=== PATIENT | male | born 1945 | race Caucasian/White ===

== ENCOUNTER 2017-01-12 07:42 | Day surgery (SDC) | payer OTHER, BC ==
[2017-01-12 08:57] VITALS: BMI 25.1
[2017-01-12 09:58] VITALS: TEMP 97.8
[2017-01-12 11:11] VITALS: BP 125/59; PULSE 71
--- NOTE | 2017-01-13 12:43 | PATH ---
Surgical Pathology Report Patient Name: JUDY ESPINOZA [facility]. Rec. #: [id number] /Age/Gender: 1945 (Age: 71) / M Account: [id number] Location: U-ENDOSCOPY Taken: 01/12/2017 Received: 01/12/2017 Reported: 01/13/2017 Physicians: Reno Sheth M.D. Specimen(s) Received A: BX SIGMOID COLON POLYP x2 B: BX ASCENDING COLON POLYP C: BX RECTAL POLYP Clinical History History of colon polyps Colon polyps, redundant colon, fair colon prep, grade 2 hemorrhoids Final Diagnosis A. COLON, SIGMOID, POLYPS x2, BIOPSY: FRAGMENTS OF HYPERPLASTIC POLYP (x4). B. COLON, ASCENDING, POLYP BIOPSY: TUBULAR ADENOMA. C. THE RECTUM, POLYP, BIOPSY: HYPERPLASTIC POLYP. Electronically Signed Jens Mattson M.D. Gross Description A. Received in formalin, labeled "biopsy sigmoid polyp" are 4 mercado, irregular portions of soft tissue ranging from 0.3-0.5 cm in greatest dimension. The specimens are submitted in toto in one cassette. B. Received in formalin, labeled "biopsy ascending colon polyp" is a mercado, irregular portion of soft tissue measuring 0.2 cm in greatest dimension. The specimen is submitted in toto in one cassette. C. Received in formalin, labeled "biopsy rectal polyp" is a mercado, irregular portion of soft tissue measuring 0.1 cm in greatest dimension. The specimen is submitted in toto in one cassette. /01/12/201701/12/2017
== END 2017-01-12 11:11 | disposition home or self-care (01) ==
LOC: JASU-ENDO 07:42
PROVIDERS: ATTEND Internal Medicine Gastroenterology
PROC: 0DBN8ZX Excision of Sigmoid Colon, Via Natural or Artificial Opening Endoscopic, Diagnostic (ICD-10-PCS; 2017-01-12)
PROC: 0DBP8ZX Excision of Rectum, Via Natural or Artificial Opening Endoscopic, Diagnostic (ICD-10-PCS; 2017-01-12)
PROC: 0DBK8ZX Excision of Ascending Colon, Via Natural or Artificial Opening Endoscopic, Diagnostic (ICD-10-PCS; principal; 2017-01-12 09:00)
DX: Z12.11 Encounter for screening for malignant neoplasm of colon (principal); Z86.010 Personal history of colon polyps; D12.2 Benign neoplasm of ascending colon; D12.5 Benign neoplasm of sigmoid colon; K62.1 Rectal polyp; K64.8 Other hemorrhoids
CPT/HCPCS: 88305-TC

== ENCOUNTER 2017-07-06 09:35 | Day surgery (SDC) | payer OTHER, BC ==
[2017-07-06 10:14] VITALS: BMI 25.1
[2017-07-06] MEDS ORDERED: PROPOFOL 20 ML ONE ×2 (10:29)
[2017-07-06 11:27] VITALS: TEMP 97.7
[2017-07-06 12:15] VITALS: PULSE 70
[2017-07-06 15:19] VITALS: BP 136/75
--- NOTE | 2017-07-07 11:38 | PATH ---
Surgical Pathology Report Patient Name: JUDY ESPINOZA [facility]. Rec. #: [id number] /Age/Gender: 1945 (Age: 71) / M Account: [id number] Location: U-ENDOSCOPY Taken: 07/06/2017 Received: 07/06/2017 Reported: 07/07/2017 Physicians: Reno Sheth M.D. Specimen(s) Received A: POLYP FROM ASCENDING COLON B: BIOPSY POLYP FROM RECTO-SIGMOID COLON Clinical History Preoperative diagnosis: Diverticulosis Postoperative diagnosis: Colon polyp, redundant colon, diverticulosis, third-degree hemorrhoids Final Diagnosis A. COLON, ASCENDING, BIOPSY: HYPERPLASTIC POLYP. B. COLON, RECTOSIGMOID, BIOPSY: HYPERPLASTIC POLYP. Electronically Signed Giovanny Quiroga M.D. Gross Description A. Received in formalin, labeled "polyp ascending colon" is a mercado, irregular portion of soft tissue measuring 0.2 cm. in greatest dimension. The specimen is submitted in toto in one cassette. B. Received in formalin, labeled "biopsy polyp rectosigmoid" are 3 mercado, irregular portions of soft tissue ranging from 0.2-0.3 cm. in greatest dimension. The specimens are submitted in toto in one cassette. 07/06/201707/06/2017
== END 2017-07-06 12:30 | disposition home or self-care (01) ==
LOC: JASU-ENDO 09:35
PROVIDERS: ATTEND Internal Medicine Gastroenterology
PROC: 0DBN8ZX Excision of Sigmoid Colon, Via Natural or Artificial Opening Endoscopic, Diagnostic (ICD-10-PCS; 2017-07-06)
PROC: 0DBK8ZX Excision of Ascending Colon, Via Natural or Artificial Opening Endoscopic, Diagnostic (ICD-10-PCS; principal; 2017-07-06 10:00)
DX: Z12.11 Encounter for screening for malignant neoplasm of colon (principal); Z86.010 Personal history of colon polyps; K57.30 Diverticulosis of large intestine without perforation or abscess without bleeding; K64.8 Other hemorrhoids; K63.89 Other specified diseases of intestine; D12.2 Benign neoplasm of ascending colon; D12.7 Benign neoplasm of rectosigmoid junction
CPT/HCPCS: 88305-TC

== ENCOUNTER 2024-02-10 17:20 | Inpatient (IN) | payer OTHER, BC ==
[2024-02-10] MEDS: SODIUM CHLORIDE 0.9% 1000 ML INFUS.BAG IV STA (18:01)
[2024-02-10] MEDS ORDERED: ACETAMINOPHEN INJECTION 100 ML IVPB ONE (18:03)
[2024-02-10] MEDS: ACETAMINOPHEN 1000 MG/100 ML BAG IVPB ONE (18:04)
[2024-02-10 18:08] LABS: BASO % 0.2 % (0-2.0); HEMATOCRIT 44.9 % (35.4-49); HEMOGLOBIN 14.5 GM/dL (11.7-16.9); LYMPH % 10.5 % (8-40); MCHC 32.4 g/dl (32.0-35.9); MEAN PLT VOLUME 10.6 fl (7.5-11.1); MONO % 15.6 % (3.8-10.2); NEUT % 73.7 % (42.8-82.8); PLATELET COUNT 201 10^3/uL (134-434); RBC 4.27 M/mm3 (4.00-5.60); RDW 15.1 % (11.9-15.9); VENOUS BASE EXCESS -7.9 mmol/L (-2-2); VENOUS O2 SATURATION 42.3 % (70-80); VENOUS PCO2 38.5 mmHg (38-52); VENOUS PH 7.289 (7.310-7.410); WHITE BLOOD COUNT 13.5 K/mm3 (4.0-10.0)
[2024-02-10] MEDS: PIPERACILLIN/TAZOBACTAM 4.5 GM VIAL IVPB ONE (18:13)
[2024-02-10 18:14] LABS: INR 1.42 (0.83-1.09); PROTHROMBIN TIME (PATIENT) 16.2 SEC (9.7-13.0)
[2024-02-10] MEDS ORDERED: PIPERACILLIN/TAZOB 4.5 GM 4.5 GM/100 ML BAG IVPB ONE (18:14)
[2024-02-10 18:16] LABS: ACTIVATED PTT 48.1 SECONDS (25.2-36.5)
[2024-02-10] MEDS ORDERED: VANCOMYCIN 1 GRAM (PRE-DOCKED) 1,000 MG/250 ML BAG IVPB ONE (18:24)
[2024-02-10] MEDS: VANCOMYCIN 1,500 MG in DEXTROSE 5%-WATER - 500 ML IVPB ONE (18:26)
[2024-02-10 18:31] LABS: ANISOCYTOSIS 1+; MACROCYTOSIS 1+
[2024-02-10 18:37] LABS: CHLORIDE 128 mmol/L (98-107); POTASSIUM 5.6 mmol/L (3.5-5.1)
[2024-02-10 18:39] LABS: CALCIUM 9.7 mg/dL (8.5-10.1)
[2024-02-10 18:40] LABS: CO2 21 mmol/L (21-32); GLUCOSE,RANDOM 154 mg/dL (74-106)
[2024-02-10 18:43] LABS: CREATININE 3.5 mg/dL (0.55-1.3); SGOT/AST 161 U/L (15-37); SGPT/ALT 113 U/L (13-61)
[2024-02-10 18:45] LABS: BILIRUBIN,TOTAL 3.8 mg/dL (0.2-1); TOT PROT 7.7 g/dl (6.4-8.2)
[2024-02-10 18:46] LABS: ALK PHOS 100 U/L (45-117)
[2024-02-10 18:55] LABS: ANION GAP 14 mmol/L (4-13); BLOOD UREA NITROGEN 140.4 mg/dL (7-18); LACTIC ACID 6.8 mmol/L (0.4-2.0); SODIUM 163 mmol/L (136-145)
[2024-02-10] MEDS ORDERED: dilTIAZem HCL 125 MG/25 ML - 25 ML VIAL ONE (19:08)
[2024-02-10] MEDS: SODIUM CHLORIDE 0.45% 1,000 ML IV SCH ×2 (19:18→22:45)
[2024-02-10] MEDS: dilTIAZem HCL 50 MG/10 ML - 10 ML VIAL IVPUSH ONE (19:18)
[2024-02-10] MEDS ORDERED: DEXTROSE 50%-WATER 25 GM/50 ML DISP.SYRIN ONE (19:23)
[2024-02-10] MEDS ORDERED: INSULIN REGULAR HUMAN 100 UNITS/ML *VIAL ONE (19:23)
[2024-02-10] MEDS: DEXTROSE 50%-WATER - 25 GM/50 ML VIAL IVPUSH ONE (19:36)
[2024-02-10] MEDS: INSULIN REGULAR HUMAN 100 UNITS/ML *VIAL IVPUSH ONE (19:36)
[2024-02-10] MEDS ORDERED: NOREPINEPHRINE BITARTRATE 4 MG/4 ML ML IV ONE (21:47)
[2024-02-10 21:55] LABS: CHLORIDE 131 mmol/L (98-107); POTASSIUM 4.2 mmol/L (3.5-5.1)
[2024-02-10 21:56] LABS: CALCIUM 8.6 mg/dL (8.5-10.1)
[2024-02-10] MEDS: NOREPINEPHRINE BITARTRATE 4,000 MCG in DEXTROSE 5%-WATER - 496 ML IV SCH (21:56)
[2024-02-10 21:57] LABS: ALBUMIN 2.7 g/dl (3.4-5.0); CO2 23 mmol/L (21-32); GLUCOSE,RANDOM 111 mg/dL (74-106)
[2024-02-10 22:00] LABS: CREATININE 3.4 mg/dL (0.55-1.3); SGOT/AST 175 U/L (15-37); SGPT/ALT 106 U/L (13-61)
[2024-02-10 22:01] LABS: TOT PROT 6.7 g/dl (6.4-8.2)
[2024-02-10 22:02] LABS: BILIRUBIN,TOTAL 4.3 mg/dL (0.2-1)
[2024-02-10 22:03] LABS: ALK PHOS 85 U/L (45-117); ANION GAP 8 mmol/L (4-13); BLOOD UREA NITROGEN 134.7 mg/dL (7-18); SODIUM 162 mmol/L (136-145)
[2024-02-10 22:09] LABS: LACTIC ACID 4.2 mmol/L (0.4-2.0)
[2024-02-11] MEDS ORDERED: PNEUMOC 20-VAL CONJ-DIP CRM/PF 0.5 ML SYRINGE IM ONE (00:11)
[2024-02-11] MEDS ORDERED: HYDROmorphone HCl 2 MG/ML VIAL IVPUSH PRN (00:26)
[2024-02-11] MEDS: HEPARIN NA (PORCINE) 5,000 UNITS/ML 1ML VIAL SQ SCH (00:46)
[2024-02-11 01:48] LABS: ARTERIAL BLD GAS O2 SATURATION 97.1 % (95-98); ARTERIAL BLOOD GAS BASE EXCESS -3.1 mmol/L (-2-2); ARTERIAL BLOOD GAS PO2 87.7 mmHg (80-100)
[2024-02-11 01:52] LABS: ALLENS TEST POSITIVE
[2024-02-11] MEDS ORDERED: PIPERACILLIN/TAZOB 2.25 GM 2.25 GM in DEXTROSE 5%-WATER - 50 ML IVPB SCH (02:00)
[2024-02-11] MEDS: PANTOPRAZOLE SODIUM 40 MG VIAL IVPUSH SCH (02:17)
[2024-02-11 02:27] LABS: CHLORIDE 130 mmol/L (98-107); POTASSIUM 4.5 mmol/L (3.5-5.1)
[2024-02-11 02:30] LABS: ALBUMIN 2.7 g/dl (3.4-5.0); CALCIUM 8.8 mg/dL (8.5-10.1); CO2 25 mmol/L (21-32); GLUCOSE,RANDOM 139 mg/dL (74-106); MAGNESIUM 2.8 mg/dL (1.8-2.4)
[2024-02-11 02:33] LABS: CREATININE 3.2 mg/dL (0.55-1.3); PHOSPHOROUS 3.8 mg/dL (2.5-4.9); SGOT/AST 180 U/L (15-37); SGPT/ALT 109 U/L (13-61)
[2024-02-11 02:35] LABS: BILIRUBIN,TOTAL 4.4 mg/dL (0.2-1); TOT PROT 6.7 g/dl (6.4-8.2)
[2024-02-11 02:36] LABS: ALK PHOS 89 U/L (45-117)
[2024-02-11 02:47] LABS: ANION GAP 7 mmol/L (4-13); BLOOD UREA NITROGEN 133.5 mg/dL (7-18); SODIUM 162 mmol/L (136-145); URIC ACID 14.7 mg/dL (2.6-7.2)
[2024-02-11] MEDS: PIPERACILLIN/TAZOB 2.25 GM 2.25 GM in DEXTROSE 5%-WATER - 50 ML IVPB SCH (06:15)
[2024-02-11] MEDS: methylPREDNISolone NA SUCC 40 MG/1 ML VIAL IVPUSH SCH (06:15)
[2024-02-11] MEDS: AZITHROMYCIN 1% OPHTH SOLN 1 BOTTLE OD SCH (06:18)
[2024-02-11] MEDS: MUPIROCIN 2% TOPICAL OINTMENT FOR DECOLONIZATION NS SCH (06:19)
[2024-02-11 07:20] LABS: BASO % 0.1 % (0-2.0); HEMATOCRIT 34.5 % (35.4-49); HEMOGLOBIN 11.5 GM/dL (11.7-16.9); MCH 34.1 pg (25.7-33.7); MCHC 33.4 g/dl (32.0-35.9); MEAN CELL VOLUME 102.3 fl (80-96); MEAN PLT VOLUME 10.4 fl (7.5-11.1); MONO % 15.3 % (3.8-10.2); NEUT % 78.6 % (42.8-82.8); RBC 3.37 M/mm3 (4.00-5.60); RDW 14.5 % (11.9-15.9)
[2024-02-11 07:28] LABS: INR 1.62 (0.83-1.09); PROTHROMBIN TIME (PATIENT) 18.4 SEC (9.7-13.0)
[2024-02-11 07:31] LABS: ACTIVATED PTT 59.2 SECONDS (25.2-36.5)
[2024-02-11 07:35] LABS: MAGNESIUM 2.6 mg/dL (1.8-2.4)
[2024-02-11 07:36] LABS: AMYLASE 192 U/L (25-115)
[2024-02-11 09:56] LABS: PLATELET COUNT 124 10^3/uL (134-434)
[2024-02-11] MEDS: HYDROmorphone HCL CARPU-JECT 2 MG/1 ML DISP.SYRIN IVPUSH PRN (14:42)
[2024-02-11 15:10] LABS: BASO % 0.1 % (0-2.0); HEMATOCRIT 37.2 % (35.4-49); HEMOGLOBIN 11.9 GM/dL (11.7-16.9); LYMPH % 4.4 % (8-40); MCH 33.7 pg (25.7-33.7); MEAN PLT VOLUME 10.5 fl (7.5-11.1); MONO % 5.2 % (3.8-10.2); NEUT % 90.3 % (42.8-82.8); PLATELET COUNT 128 10^3/uL (134-434); RBC 3.54 M/mm3 (4.00-5.60); RDW 13.8 % (11.9-15.9)
[2024-02-11 15:17] LABS: INR 1.71 (0.83-1.09)
[2024-02-11 15:28] LABS: CHLORIDE 134 mmol/L (98-107)
[2024-02-11 15:30] LABS: CALCIUM 8.7 mg/dL (8.5-10.1); CHLORIDE 133 mmol/L (98-107); POTASSIUM 5.1 mmol/L (3.5-5.1)
[2024-02-11 15:31] LABS: ALBUMIN 2.3 g/dl (3.4-5.0); CO2 24 mmol/L (21-32); GLUCOSE,RANDOM 145 mg/dL (74-106)
[2024-02-11 15:32] LABS: ALBUMIN 2.4 g/dl (3.4-5.0); CALCIUM 8.8 mg/dL (8.5-10.1); CO2 24 mmol/L (21-32)
[2024-02-11 15:33] LABS: GLUCOSE,RANDOM 145 mg/dL (74-106)
[2024-02-11 15:34] LABS: CREATININE 2.5 mg/dL (0.55-1.3); SGOT/AST 102 U/L (15-37); SGPT/ALT 87 U/L (13-61)
[2024-02-11 15:36] LABS: BILIRUBIN,TOTAL 2.5 mg/dL (0.2-1); SGOT/AST 103 U/L (15-37); SGPT/ALT 82 U/L (13-61)
[2024-02-11 15:37] LABS: ALK PHOS 75 U/L (45-117); BILIRUBIN,TOTAL 2.5 mg/dL (0.2-1); TOT PROT 5.8 g/dl (6.4-8.2)
[2024-02-11 15:38] LABS: ALK PHOS 74 U/L (45-117)
[2024-02-11 15:40] LABS: ANION GAP 4 mmol/L (4-13); BLOOD UREA NITROGEN 118.3 mg/dL (7-18); CREATININE 2.6 mg/dL (0.55-1.3); SODIUM 161 mmol/L (136-145)
[2024-02-11 15:56] LABS: ANION GAP 5 mmol/L (4-13); BLOOD UREA NITROGEN 117.6 mg/dL (7-18); SODIUM 163 mmol/L (136-145)
[2024-02-11] MEDS: DEXTROSE 5%-WATER - 1,000 ML IV SCH ×2 (16:12→22:44)
[2024-02-11] MEDS: CEFTRIAXONE 1 GM in DEXTROSE 5%-WATER - 50 ML IVPB SCH (16:34)
[2024-02-11] MEDS: dilTIAZem HCL 50 MG/10 ML - 10 ML VIAL IVPUSH PRN (16:50)
[2024-02-11] MEDS: VANCOMYCIN/WATER 1250 MG 1,250 MG/250 ML BAG IVPB ONE (17:41)
[2024-02-11] MEDS: SENNOSIDES 8.8 MG/5 ML SYRUP PO SCH (21:38)
[2024-02-11] MEDS: CHLORHEXIDINE GLUCONATE 4% CLEANSER FOR DECOLONIZATION TP SCH (21:38)
[2024-02-11 21:47] LABS: CHLORIDE 134 mmol/L (98-107); POTASSIUM 4.4 mmol/L (3.5-5.1)
[2024-02-11 21:49] LABS: CALCIUM 8.4 mg/dL (8.5-10.1); CO2 23 mmol/L (21-32); GLUCOSE,RANDOM 192 mg/dL (74-106)
[2024-02-11 21:52] LABS: CREATININE 2.3 mg/dL (0.55-1.3)
[2024-02-11 21:58] LABS: ANION GAP 5 mmol/L (4-13); BLOOD UREA NITROGEN 108.8 mg/dL (7-18); SODIUM 162 mmol/L (136-145)
[2024-02-12 06:49] LABS: BASO % 0.1 % (0-2.0); HEMATOCRIT 37.8 % (35.4-49); LYMPH % 3.5 % (8-40); MCHC 31.6 g/dl (32.0-35.9); MEAN CELL VOLUME 104.3 fl (80-96); MEAN PLT VOLUME 10.8 fl (7.5-11.1); MONO % 6.5 % (3.8-10.2); NEUT % 89.9 % (42.8-82.8); PLATELET COUNT 161 10^3/uL (134-434); RBC 3.63 M/mm3 (4.00-5.60); RDW 13.8 % (11.9-15.9); WHITE BLOOD COUNT 11.9 K/mm3 (4.0-10.0)
[2024-02-12 07:00] LABS: CHLORIDE 132 mmol/L (98-107); POTASSIUM 4.1 mmol/L (3.5-5.1)
[2024-02-12 07:02] LABS: INR 1.6 (0.83-1.09); PROTHROMBIN TIME (PATIENT) 17.8 SEC (9.7-13.0)
[2024-02-12 07:04] LABS: CALCIUM 9.2 mg/dL (8.5-10.1)
[2024-02-12 07:05] LABS: ALBUMIN 2.4 g/dl (3.4-5.0); CO2 23 mmol/L (21-32); GLUCOSE,RANDOM 166 mg/dL (74-106)
[2024-02-12 07:08] LABS: CREATININE 2.2 mg/dL (0.55-1.3); SGOT/AST 68 U/L (15-37); SGPT/ALT 77 U/L (13-61)
[2024-02-12 07:09] LABS: TOT PROT 6.2 g/dl (6.4-8.2)
[2024-02-12 07:10] LABS: BILIRUBIN,TOTAL 1.6 mg/dL (0.2-1)
[2024-02-12 07:11] LABS: ALK PHOS 74 U/L (45-117)
[2024-02-12 07:44] LABS: ANION GAP 5 mmol/L (4-13); BLOOD UREA NITROGEN 104.6 mg/dL (7-18); SODIUM 160 mmol/L (136-145)
[2024-02-12] MEDS: THIAMINE HCL 200 MG/2 ML VIAL IVPB SCH (09:00)
[2024-02-12] MEDS ORDERED: cefTRIAXone SODIUM 1 GM VIAL ONE (09:35)
[2024-02-12] MEDS: MAGNESIUM SULFATE IN WATER 2 GM/50 ML IVPB IVPB ONE (09:49)
[2024-02-12] MEDS ORDERED: CEFTRIAXONE 1 GM in DEXTROSE 5%-WATER - 50 ML IVPB SCH (10:00)
[2024-02-12 11:27] LABS: POTASSIUM 3.9 mmol/L (3.5-5.1)
[2024-02-12 11:30] LABS: CALCIUM 9.1 mg/dL (8.5-10.1)
[2024-02-12 11:31] LABS: BLOOD UREA NITROGEN 100.8 mg/dL (7-18)
[2024-02-12 11:34] LABS: CREATININE 2.3 mg/dL (0.55-1.3)
[2024-02-12] MEDS: DEXTROSE 5%-WATER - 1,000 ML IV SCH ×2 (12:00→23:32)
[2024-02-12] MEDS ORDERED: LORazepam 1 MG TABLET PO PRN (13:29)
[2024-02-12] MEDS: LORazepam 1 MG TABLET PO SCH (13:54)
[2024-02-12 15:44] LABS: POTASSIUM 3.8 mmol/L (3.5-5.1)
[2024-02-12 15:47] LABS: CALCIUM 8.7 mg/dL (8.5-10.1)
[2024-02-12 15:49] LABS: CREATININE 2.1 mg/dL (0.55-1.3)
[2024-02-12] MEDS: INSULIN ASPART SLIDING SCALE (NOVOLOG) 1 VIAL SQ SCH (18:00)
[2024-02-13 06:58] LABS: BASO % 0.3 % (0-2.0); HEMATOCRIT 30.9 % (35.4-49); HEMOGLOBIN 10.3 GM/dL (11.7-16.9); LYMPH % 3.6 % (8-40); MCH 33.7 pg (25.7-33.7); MCHC 33.2 g/dl (32.0-35.9); MEAN CELL VOLUME 101.5 fl (80-96); MEAN PLT VOLUME 11.7 fl (7.5-11.1); MONO % 6.6 % (3.8-10.2); NEUT % 89.5 % (42.8-82.8); PLATELET COUNT 130 10^3/uL (134-434); RBC 3.04 M/mm3 (4.00-5.60); RDW 13.4 % (11.9-15.9); WHITE BLOOD COUNT 10.6 K/mm3 (4.0-10.0)
[2024-02-13 07:21] LABS: ALBUMIN 2.1 g/dl (3.4-5.0); BLOOD UREA NITROGEN 87.3 mg/dL (7-18); CALCIUM 8.7 mg/dL (8.5-10.1)
[2024-02-13 07:24] LABS: CREATININE 1.6 mg/dL (0.55-1.3)
[2024-02-13 07:25] LABS: TOT PROT 5.2 g/dl (6.4-8.2)
[2024-02-13] MEDS: MULTIVITAMINS (DAILY MVI) TABLET (FP) PO SCH (09:19)
[2024-02-13] MEDS: FOLIC ACID 1 MG TABLET (FP) PO SCH (09:19)
[2024-02-13] MEDS ORDERED: DEXTROSE 5%-WATER - 1,000 ML IV SCH (17:55)
[2024-02-13] MEDS ORDERED: dilTIAZem HCL 50 MG/10 ML - 10 ML VIAL IVPUSH PRN (17:55)
[2024-02-13] MEDS: HEPARIN NA (PORCINE) 5,000 UNITS/ML 1ML VIAL SQ SCH (22:09)
[2024-02-13] MEDS: CHLORHEXIDINE GLUCONATE 4% CLEANSER FOR DECOLONIZATION TP SCH (22:09)
[2024-02-13] MEDS: SENNOSIDES 8.6MG TABLET (FP) PO SCH (22:09)
[2024-02-13] MEDS: PANTOPRAZOLE SODIUM 40 MG VIAL IVPUSH SCH (22:09)
[2024-02-13] MEDS: MUPIROCIN 2% TOPICAL OINTMENT FOR DECOLONIZATION NS SCH (22:09)
[2024-02-13] MEDS: DEXTROSE 5%-WATER - 1,000 ML IV SCH (22:10)
[2024-02-13] MEDS: AZITHROMYCIN 1% OPHTH SOLN 1 BOTTLE OD SCH (22:19)
[2024-02-14] MEDS: DEXTROSE 5%-WATER - 1,000 ML IV SCH (03:44)
[2024-02-14] MEDS ORDERED: LORazepam 1 MG TABLET PO SCH (05:00)
[2024-02-14] MEDS: LORazepam 1 MG TABLET PO SCH (05:18)
[2024-02-14 07:14] LABS: BASO % 0.1 % (0-2.0); EOS % 0.1 % (0-4.5); HEMATOCRIT 31.3 % (35.4-49); HEMOGLOBIN 10.4 GM/dL (11.7-16.9); LYMPH % 7.6 % (8-40); MCH 33.5 pg (25.7-33.7); MCHC 33.4 g/dl (32.0-35.9); MEAN CELL VOLUME 100.3 fl (80-96); MEAN PLT VOLUME 11.3 fl (7.5-11.1); MONO % 9.3 % (3.8-10.2); NEUT % 82.9 % (42.8-82.8); PLATELET COUNT 120 10^3/uL (134-434); RBC 3.12 M/mm3 (4.00-5.60); RDW 12.9 % (11.9-15.9); WHITE BLOOD COUNT 8.8 K/mm3 (4.0-10.0)
[2024-02-14 07:26] LABS: POTASSIUM 3.6 mmol/L (3.5-5.1)
[2024-02-14 07:30] LABS: CALCIUM 8.2 mg/dL (8.5-10.1); MAGNESIUM 1.6 mg/dL (1.8-2.4)
[2024-02-14 07:33] LABS: CREATININE 1.1 mg/dL (0.55-1.3); PHOSPHOROUS 2.4 mg/dL (2.5-4.9)
[2024-02-14 07:44] LABS: BLOOD UREA NITROGEN 54.7 mg/dL (7-18)
[2024-02-14] MEDS: THIAMINE HCL 200 MG/2 ML VIAL IVPB SCH (09:10)
[2024-02-14] MEDS: FOLIC ACID 1 MG TABLET (FP) PO SCH (09:10)
[2024-02-14] MEDS: MULTIVITAMINS (DAILY MVI) TABLET (FP) PO SCH (09:10)
[2024-02-14] MEDS: CEFTRIAXONE 1 GM in DEXTROSE 5%-WATER - 50 ML IVPB SCH (09:11)
[2024-02-14] MEDS: LORazepam 1 MG TABLET PO PRN (09:12)
[2024-02-14] MEDS: NAPH,MB-DB/K PH,MBDB POWDER PACKET PO SCH (10:42)
[2024-02-14] MEDS: MAGNESIUM SULF 50% (8.12 MEQ/2 ML-1 GM VIAL) IVPB ONE (10:42)
[2024-02-14 10:44] VITALS: BMI 19.1
[2024-02-14] MEDS: POTASSIUM CHLORIDE 10 MEQ in DEXTROSE 5%-WATER - 1,000 ML IV SCH (11:33)
[2024-02-14] MEDS: ZINC SULFATE 220 MG CAPSULE (FP) PO SCH (13:16)
[2024-02-14] MEDS: ASCORBIC ACID 500 MG TABLET (FP) PO SCH (13:17)
[2024-02-14] MEDS: AMINO ACIDS/PROTEIN HYDROLYS 30 ML LIQUID.PKT PO SCH (13:17)
[2024-02-14] MEDS ORDERED: oxyCODONE HCL 5 MG TABLET PO PRN (16:56)
[2024-02-14] MEDS: ACETAMINOPHEN 1000 MG/100 ML BAG IVPB PRN (17:07)
[2024-02-14 20:07] VITALS: BP 130/84; PULSE 96; RESP 23; TEMP 98.2
[2024-02-14] MEDS: NICOTINE 14 MG/24 HOURS TOPICAL PATCH TD SCH (21:58)
[2024-02-15] MEDS ORDERED: LORazepam 0.5 MG TABLET PO PRN
[2024-02-15] MEDS ORDERED: LORazepam 0.5 MG TABLET PO SCH ×2 (05:00)
[2024-02-16] MEDS ORDERED: LORazepam 0.5 MG TABLET PO PRN
[2024-02-16] MEDS ORDERED: LORazepam 0.5 MG TABLET PO ONE ×2 (05:00)
== END 2024-02-14 22:30 | disposition short-term general hospital (02) | DRG 871 ==
LOC: JER 17:20 → JERBED 21:46 → JICU 02-11 00:22 → J2W 02-13 17:44
PROVIDERS: ADMIT Internal Medicine Pulmonary Disease; ATTEND Internal Medicine
PROC: 05HD33Z Insertion of Infusion Device into Right Cephalic Vein, Percutaneous Approach (ICD-10-PCS; principal; 2024-02-13)
DX: A41.9 Sepsis, unspecified organism (principal); G93.41 Metabolic encephalopathy; J69.0 Pneumonitis due to inhalation of food and vomit; S72.002A Fracture of unspecified part of neck of left femur, initial encounter for closed fracture; R65.21 Severe sepsis with septic shock; E87.0 Hyperosmolality and hypernatremia; N17.9 Acute kidney failure, unspecified; E87.20 Acidosis, unspecified; M62.82 Rhabdomyolysis; R64 Cachexia; I48.0 Paroxysmal atrial fibrillation; L89.159 Pressure ulcer of sacral region, unspecified stage; F10.20 Alcohol dependence, uncomplicated; W19.XXXA Unspecified fall, initial encounter; Y93.9 Activity, unspecified; Y92.89 Other specified places as the place of occurrence of the external cause; Y99.9 Unspecified external cause status; E78.5 Hyperlipidemia, unspecified; I10 Essential (primary) hypertension; R62.7 Adult failure to thrive; Z68.20 Body mass index [BMI] 20.0-20.9, adult; E86.0 Dehydration
CPT/HCPCS: 0241U-QW; 36415; 36600; 70450-TC; 71045-TC-FY; 71250-TC; 72125-TC; 72128-TC; 72131-TC; 72170-TC-FY; 73502-TC-LT-FY; 73552-TC-LT-FY; 74176-TC; 80048; 80053; 82150; 82550; 82553; 82570; 82803; 82962; 83036; 83605; 83690; 83735; 83880; 83935; 84100; 84295; 84300; 84436; 84443; 84484; 84550; 85025; 85379; 85610; 85730; 86140; 86850; 86900; 86901; 87040; 87081; 87635; 87899; 93005; 93010; 93306-TC; 94010; 99285-25; G0480; J0131; J1644